=== PATIENT | female | born 1945 | race Caucasian/White ===

== ENCOUNTER 2023-09-06 08:10 | Observation (INO) ==
--- NOTE | 2023-08-14 12:30 | PAT Medication Instructions ---
Medication Instructions Date of Service August 14, 2023 Home Medications Vitamin D3 1 tab PO QAM amlodipine 10 mg tablet 10 mg PO QAM aspirin 81 mg capsule 81 mg PO QPM clopidogrel 75 mg tablet 75 mg PO QPM cyanocobalamin (vitamin B-12) 1 tab PO QAM gabapentin 300 mg capsule 300 mg PO BID levothyroxine 75 mcg tablet 75 mcg PO QAM lisinopril 20 mg tablet 20 mg PO BID multivitamin-ferrous fumarate-folic acid 18 mg-400 mcg tablet (Centrum Women) 1 tab PO QAM propranolol 20 mg tablet 40 mg PO BID tolterodine 1 mg tablet 1 mg PO BID ASK your prescriber and surgeon aspirin 81 mg capsule 81 mg PO QPM clopidogrel 75 mg tablet 75 mg PO QPM(in order for spinal or epidural anesthesia, Plavix needs to be stopped 7 days before surgery. Please check if okay with doctor that prescribes this to you) DO NOT take the morning of surgery Vitamin D3 1 tab PO QAM cyanocobalamin (vitamin B-12) 1 tab PO QAM lisinopril 20 mg tablet 20 mg PO BID multivitamin-ferrous fumarate-folic acid 18 mg-400 mcg tablet (Centrum Women) 1 tab PO QAM tolterodine 1 mg tablet 1 mg PO BID Take morning of surgery With a small sip of water, OTHERWISE NOTHING TO EAT OR DRINK AFTER MIDNIGHT: amlodipine 10 mg tablet 10 mg PO QAM gabapentin 300 mg capsule 300 mg PO BID levothyroxine 75 mcg tablet 75 mcg PO QAM propranolol 20 mg tablet 40 mg PO BID Take evening before surgery gabapentin 300 mg capsule 300 mg PO BID lisinopril 20 mg tablet 20 mg PO BID propranolol 20 mg tablet 40 mg PO BID tolterodine 1 mg tablet 1 mg PO BID Other Notes If you have any questions please call us at [phone] or [phone] or [phone] or [phone]
--- NOTE | 2023-08-21 10:24 | Anesthesiology Consultation ---
Date of Service August 21, 2023 Assessment & Plan (1) Encounter for pre-operative examination: - medical clearance 08/10/23: "...yes patient is medically cleared for surgery..." - Outpatient joint assessment: Patient is currently scheduled for inpatient pathway. If re-evaluated and patient/surgeon requests outpatient pathway, patient is not recommended candidate for outpatient joint program from anesthesia standpoint. Chart Review Chart Review: Acceptable Risk for Surgery and Patient seen in Pre Admission Testing Teaching & Discussion Pre-Anesthesia Teaching/Discussion Notes: Instructed NPO after midnight before surgery, except medications with 15 cc of water. Medication instructions provided according to the PAT guidelines. History Surgery Operation Date: 09/06/23 10:25 Proposed Procedures p Right Total Hip Arthroplasty - Mihir Boo MD Height/Weight Height: 5 ft 2 in Weight: 73 kg Allergies Allergy/AdvReac Type Severity Reaction Status Date / Time Influenza Virus Vaccines Allergy "Deathly Verified 08/16/23 08:39 sick and hospitalized" shellfish derived Allergy N/V, Verified 08/16/23 08:39 diarrhea [id number] Reductase AdvReac muscle Verified 08/14/23 08:22 Inhibitor aches Medications Home Medications Medication Instructions Recorded Confirmed Last Taken Vitamin D3 1 tab PO QAM 08/14/23 08/14/23 Unknown amlodipine 10 mg tablet 10 mg PO QAM 08/14/23 08/14/23 Unknown aspirin 81 mg capsule 81 mg PO QPM 08/14/23 08/14/23 Unknown clopidogrel 75 mg tablet 75 mg PO QPM 08/14/23 08/14/23 Unknown cyanocobalamin (vitamin B-12) 1 tab PO QAM 08/14/23 08/14/23 Unknown gabapentin 300 mg capsule 300 mg PO BID 08/14/23 08/14/23 Unknown levothyroxine 75 mcg tablet 75 mcg PO QAM 08/14/23 08/14/23 Unknown lisinopril 20 mg tablet 20 mg PO BID 08/14/23 08/14/23 Unknown multivitamin-ferrous 1 tab PO QAM 08/14/23 08/14/23 Unknown fumarate-folic acid 18 mg-400 mcg tablet (Centrum Women) propranolol 20 mg tablet 40 mg PO BID 08/14/23 08/14/23 Unknown tolterodine 1 mg tablet 1 mg PO BID 08/14/23 08/14/23 Unknown Past Medical History Medical History (Updated 08/21/23 @ 10:39 by Beatrice Kennedy PA-C) Diabetes mellitus diet controlled History of anemia Hx transfusion during hysterectomy, 1976 History of COVID-19 2020: hospitalized overnight, symptoms resolved Hx of transient ischemic attack (TIA) ~, left sided weakness, currently on Plavix; denies additional episodes Hypertension controlled, stable per pt Hypothyroidism Presence of pessary Seasonal allergies Chronic congestion + rhinorrhea (clear) Tremor Hands, chin Reason for propranolol Urinary incontinence + Pessary Patient denies h/o seizures, heart attack, heart failure, DM, or blood clots/DVTs. Exercise / Class Metabolic Activity III < 4 Walking/Shop/Light housework (denies chest discomfort or shortness of breath with usual activities) Past Surgical History Surgical History Hx of appendectomy Hx of bilateral cataract extraction Hx of colonoscopy Hx of hysterectomy Hx of tonsillectomy Past Anesthesia History No Hx of Anesthesia Complications and No Family Hx of Anesthesia Complications History of PONV No Hx of PONV and Hx of Motion Sickness Social History Smoking Status: Never smoker Do You Dip or Chew Tobacco: No Hx Alcohol Use: No Hx Substance Use: No substance use type: does not use Review of Systems Occasional snoring, denies witnessed apneas. Patient denies chest pain, shortness of breath, dyspnea on exertion, reflux, fever, chills, cough, wheezing, or palpitations. Physical Exam Vital Signs Vitals BP 114/69 P 66 TEMP 97.6 SP02 95% on RA RESP 18 Physical Patient resting comfortably in chair in no acute distress, alert and oriented, responding appropriately throughout visit Full cervical extension range of motion without pain TMD 3.5 finger breadths Mallampati Score 3 Dentition: right side upper removable partial; denies chipped or loose teeth, caps/crowns, implants or bridges Lungs: normal respiratory effort. Good air movement, clear throughout to auscultation, no adventitious breath sounds Cardiac: regular rate and rhythm, no murmurs noted Carotid arteries: negative bruit bilat Lab Results Anesthesia Preop Results Results Anesthesia Widget: PT 10.4 Seconds (9.0-12.0) 08/21/23 PTT 30 Seconds (21-31) 08/21/23 INR 0.9 (0.9-1.1) 08/21/23 Blood Type O Positive 08/21/23 Antibody Screen NEGATIVE 08/21/23 Testing Laboratory Results 08/13/23 WBC: 7.5 H/H: 15/46 PLATELETS: 239,000 SODIUM: 141 POTASSIUM: 4.2 CHLORIDE: 105 CO2: 31 BUN: 18 CREATININE: 0.8 GLUCOSE: 100 UA: cloudy, negative Electrocardiogram Date: 08/21/23 NSR, rate 67 bpm Left anterior fascicular block Moderate voltage criteria for LVH, may be normal variant Chest X-Ray Date: 08/21/23 No active disease in the chest.
[~2023-09-06 08:10] MED LIST: BUPIVACAINE 0.5 % 5 MG/1 ML PF 10ML VIAL ONE
[2023-09-06] MEDS ORDERED: fentaNYL citrate PF 100 MCG/2 ML VIAL ONE (08:54)
[2023-09-06] MEDS: LR 60ML/HR IV SCH (09:09)
[2023-09-06] MEDS: LR 500ML BOLUS, THEN 15ML/HR IV SCH (09:17)
--- NOTE | 2023-09-06 09:54 | History & Physical Bridge Note ---
Date of Service September 06, 2023 History & Physical Bridge Note I have examined the patient, reviewed the History & Physical and in the interval since the performance of the History & Physical I have noted the following changes of clinical significance: no changes noted
[2023-09-06] MEDS: TRANEXAMIC ACID 1,000 MG **IV Pre-op IV SCH (10:00)
[2023-09-06] MEDS: ceFAZolin 2000MG 2,000 MG/15 ML SYR IV SCH ×2 (10:25→18:31)
[2023-09-06] MEDS ORDERED: PROPOFOL IV EMULSION 10 MG/ML 20 ML VIAL IV ONE ×3 (10:52→11:14)
[2023-09-06] MEDS ORDERED: ONDANSETRON INJ 2 MG/ML 2 ML VIAL ONE (10:52)
[2023-09-06] MEDS ORDERED: PHENYLEPHRINE 100MCG/ML 10ML SYR IV ONE (11:00)
[2023-09-06] MEDS: ORTHO JOINT ANESTHETIC ONE (11:08)
[2023-09-06] MEDS: ROPIV 0.5% 246mg, Ketorolac 30mg, EPINEPHrine 0.5mg in NSS INFIL SCH (11:38)
[2023-09-06] MEDS: TRANEXAMIC ACID 1,000 MG **IV Intra-op IV SCH (11:41)
[2023-09-06] MEDS ORDERED: oxyCODONE HCL IR 5 MG TAB (IMMEDIATE RELEASE) PO PRN (12:23)
[2023-09-06] MEDS ORDERED: bisacodyL 10 MG SUPP PR PRN (12:23)
[2023-09-06] MEDS ORDERED: MAGNESIUM HYDROXIDE SUSP 30 ML UDC PO PRN (12:23)
[2023-09-06] MEDS ORDERED: NALOXONE HCL 0.4 MG/1 ML VIAL/CARP IV PRN (12:23)
[2023-09-06] MEDS ORDERED: METOCLOPRAMIDE HCL INJ 5 MG/ML 2 ML VIAL IV PRN (12:23)
[2023-09-06] MEDS ORDERED: ALUMINUM/MAGNESIUM SUSP 30 ML UDC PO PRN (12:23)
[2023-09-06] MEDS ORDERED: ONDANSETRON INJ 2 MG/ML 2 ML VIAL IV PRN (12:23)
[2023-09-06] MEDS ORDERED: diphenhydrAMINE 50 MG/ML VIAL IV PRN (12:23)
[2023-09-06] MEDS ORDERED: HYDROmorphone INJ 0.5 MG/0.5 ML SYR IV PRN (12:23)
--- NOTE | 2023-09-06 12:23 | Operative Report ---
Post Operative Report Pre & Post Diagnosis Operation Date: 09/06/23 10:05 Pre-Op Diagnosis: Right Hip Osteoarthritis Post-Op Diagnosis: Right Hip Osteoarthritis I identified the patient and participated in the time-out.: Yes Procedure Operation Date: 09/06/23 10:05 Actual Procedures p Right Total Hip Arthroplasty(Right) - Mihir Boo MD Surgeon Mihir Boo MD Manager Business Information Sharmaine Palmer PA-Didi Estimated Blood Loss 100 Findings Consistent with Post-Op Diagnosis Specimens femoral head Description of Procedure I was present during the entire case assisting with positioning, prepping, draping, wound retraction, wound closure, dressing and abduction pillow placement. No fellow present. Please see Dr. Boo procedure note for specifics of the case. I attest to the content of the Intraoperative Record and any orders documented therein. Any exceptions are noted below.
--- NOTE | 2023-09-06 12:25 | Operative Report ---
Post Operative Report Pre & Post Diagnosis Operation Date: 09/06/23 10:05 Pre-Op Diagnosis: Right Hip Osteoarthritis Post-Op Diagnosis: Right Hip Osteoarthritis I identified the patient and participated in the time-out.: Yes Procedure Operation Date: 09/06/23 10:05 Actual Procedures p Right Total Hip Arthroplasty(Right) - Mihir Boo MD Surgeon Mihir Boo MD Book Solicitor BENIJE Palmer PA-C. No resident or fellow was available to assist. Estimated Blood Loss 100 Findings Consistent with Post-Op Diagnosis Specimens Right femoral head Anesthesia Type Spinal MAC Complications none Disposition Disposition: Recovery Room Indications 78-year-old female, with right hip osteoarthritis refractory to conservative management. X-rays demonstrate coxa valga deformity of the proximal femur. Also [id number] arthritis with subchondral sclerosis. I had a long discussion with the patient about the diagnosis and treatment options. After reviewing all the risks and benefits of surgery, alternatives to surgery, and expected out comes she elected to proceed. All questions were answered. Informed consent was signed. Description of Procedure Patient was identified in the preoperative holding area where the surgical site, right hip, was marked. A spinal anesthetic was placed, then the patient was brought back to the main operating room, placed in the operating table and moved into the lateral decubitus position. Axillary roll was placed. All bony prominences were padded. Perioperative antibiotics and tranexamic acid 1 gram IV were administered. The operative extremity was prepped and draped in the normal sterile fashion. Prior to incision a multidisciplinary timeout was called. All in the room were in agreement. We began by making an incision for a posterior approach to the hip. We dissected down through subcutaneous tissues to the level of the fascia. Charnley retractor was required to retract the subcutaneous tissues which were quite thick approximately 3.5 inches. The fascia was incised in line with the incision. Charnley bow was then repositioned to retract the fascia. Fatty tissue was reflected posteriorly off the back of the greater trochanter to expose the piriformis and short external rotators of the hip. Quadratus femoris was taken off the femur subperiosteally. The piriformis and short external rotators were dissected off the posterior aspect of the hip. A box cut was made in the capsule. Inferior hip capsule was released off the femur. The femoral head was dislocated. The femoral neck cut was made at our preoperative template. The acetabulum was then exposed. The labrum was sharply excised. Contents of the cotyloid fossa were removed with electrocautery. We then began reaming at a size 8 mm less than our preoper ative template. We reamed up by [address] the way up to a size 54 mm cup. This gave us good bleeding cancellus bone circumferentially. The acetabulum was then irrigated out and dried. The real [place] Gription cup was then impacted down into position with 45 degrees of lateral opening and 25 degrees of anteversion. Two cancellous bone screws were placed up into the ilium. Excellent fixation was obtained. Given her increased risk for postoperative instability secondary to her age and female gender I elected to place a dual mobility liner for increased stability. [place] hole luggage maker screw was placed in the central hole of the cup. The metal liner for 47 mm outer diameter head was then impacted into the metal shell, engaging the Ircardo taper appropriately. Next we turned our attention to the femur. The lateral neck was removed with a box osteotome. Intramedullary guide was used to establish the intramedullary canal. We then broached all the way up to a size 3. We began trialing with a standard offset neck and a +1.5 head. Hip was reduced. Leg lengths were symmetric. The hip was stable in extension and external rotation, and stable in the sleeper position. At 90 degrees of hip flexion the hip could not be dislocated with internal rotation past 75 degrees. A bone hook was required to dislocate the femoral head out of the acetabulum. I was very happy with the stability exam. Therefore the hip was dislocated and the femoral trial was removed. The femoral canal was irrigated and dried. The real size 3 standard offset Actis femoral stem was opened up. This was impacted down into position. The dual mobility femoral head with 1.5 mm offset inner ceramic head and outer polyethylene had was opened up, assembled on the back table, and gently impacted down onto the trunnion. The hip was atraumatically reduced. Another 1 gram of IV tranexamic acid was started prior to closure. The wound was irrigated out with sterile Betadine solution. The periarticular injection cocktail was then placed. The short external rotators, piriformis, and posterior capsule were repaired through drill holes in the greater trochanter using #2 Vicryl. The fascia was run with a looped #1 PDS. The subcutaneous layer was closed with #1 PDS. The dermal layer was closed with 2-0 Vicryl. Zip line was used for the skin followed by a Silverlon dressing. A compressive dressing was then placed. The patient was then rolled supine. Leg lengths were rechecked and were symmetric. An abduction pillow was placed. Sedation was lifted and the patient was transferred to the recovery room in stable condition. Summary of implants: Depuy [place] Gription Acetabular Shell Sector Cup, 54 mm outer diameter Two [place] Cancellous bone screws measuring 6.5 x 40 mm and 6.5 x 20 mm [place] hole eliminator [place] dual mobility liner 54/47 DePuy Actis collared cementless Femoral stem, 12/14 taper, size 3 standard offset 47/28 bipolar Ultrex polyethylene outer head and 28 mm diameter ceramic inner femoral head with +1.5 offset Postoperative course: Patient will be admitted overnight from the recovery room. Patient will be weightbearing as tolerated with posterior hip precautions. Aspirin for DVT prophylaxis I attest to the content of the Intraoperative Record and any orders documented therein. Any exceptions are noted below.
--- NOTE | 2023-09-06 12:56 | XRay Report ---
AP PELVIS History: Right total hip arthroplasty. Degenerative arthritis. Postop. FINDINGS: The patient is status post a right total hip arthroplasty. The hardware is intact. No fract ure or dislocation. IMPRESSION: Right total hip arthroplasty. No evidence for hardware complication ACT 112: Negative or not required by law. Electronically signed by: Anders Sy M.D. 09/06/2023 12:55 PM
[2023-09-06] MEDS: SODIUM CHLORIDE 0.9% 1,000 ML IV SCH (13:41)
--- NOTE | 2023-09-06 14:44 | Anesthesiology Progress Note ---
Date of Service September 06, 2023 Anesthesia Post Procedure Vital Signs Vital Signs: Temp Pulse Pulse Resp BP Pulse Ox O2 Del Method 09/06/23 14:30 36.4 C L 66 16 119/73 94 Room Air 09/06/23 14:06 36.4 C L 70 16 127/73 91 Room Air 09/06/23 13:05 66 15 117/67 94 Room Air 09/06/23 12:50 36.4 C L 63 14 128/62 92 Room Air 09/06/23 12:40 66 15 122/65 95 Room Air 09/06/23 12:30 66 16 101/79 97 Room Air 09/06/23 12:24 36.2 C L 68 14 120/77 100 Oxymask 09/06/23 08:50 36.6 C 74 20 145/78 H 95 Room Air O2 Flow Rate 09/06/23 14:30 09/06/23 14:06 09/06/23 13:05 09/06/23 12:50 09/06/23 12:40 09/06/23 12:30 09/06/23 12:24 6 09/06/23 08:50 Pain Intensity Right Hip: Pain Intensity: 5 Transfer of Care Handoff Completed per policy Notes Mental Status: alert / awake / arousable and participated in evaluation Nausea / Vomiting: adequately controlled Pain: adequately controlled Airway Patency, RR, SpO2: stable & adequate BP & HR: stable & adequate Hydration State: stable & adequate Neuraxial Anesthesia: was administered and sensory block is resolving Anesthetic Complications: no major complications apparent and Pt Satisfied with anesthetic care
[2023-09-06] MEDS: KETOROLAC TROMETHAMINE 15 MG/ML VIAL IV SCH (14:58)
[2023-09-06] MEDS: ACETAMINOPHEN 500 MG TAB PO SCH (14:58)
[2023-09-06] MEDS: GABAPENTIN 300 MG CAP PO SCH (20:10)
[2023-09-06] MEDS: lisinopril 20 MG TAB PO SCH (20:10)
[2023-09-06] MEDS: SENNA 8.6 MG TAB PO SCH (20:11)
[2023-09-06] MEDS: DOCUSATE SODIUM 100 MG CAP PO SCH (20:11)
[2023-09-06] MEDS: PROPRANOLOL HCL 20 MG TAB PO SCH (22:07)
[2023-09-07 06:21] LABS: Basophils # (auto) 0.03 K/uL (0.00-0.20); Basophils % (auto) 0.4 %; Eosinophils # (auto) 0.14 K/uL (0.00-0.50); Eosinophils % (auto) 1.9 %; Hematocrit (blood only) 36.4 % (37.0-47.0); Hemoglobin 11.8 g/dl (12.0-16.0); Immature Granulocytes # (auto) 0.02 K/uL (0.01-0.20); Immature Granulocytes % (auto) 0.3 %; Lymphocytes # (auto) 1.36 K/uL (1.20-3.40); Lymphocytes % (auto) 18.4 %; Mean Corpuscular Hemoglobin 28.8 pg (25.0-34.0); Mean Corpuscular Hgb Conc 32.4 g/dL (32.0-36.0); Mean Corpuscular Volume 88.8 fL (80.0-100.0); Mean Platelet Volume 10.1 fL (9.4-12.4); Monocytes # (auto) 0.66 K/uL (0.11-0.59); Monocytes % (auto) 8.9 %; Neutrophils # (auto) 5.18 K/uL (1.40-6.50); Neutrophils % (auto) 70.1 %; Platelet Count 185 K/uL (130-400); RDW Coefficient of Variation 14.2 % (11.5-14.5); RDW Standard Deviation 45.6 fL (36.4-46.3); White Blood Count 7.39 K/ul (4.8-10.8)
[2023-09-07 06:40] LABS: BUN Creatinine Ratio 19.7 (10-20); Calcium 8.3 mg/dl (8.6-10.3); Creatinine Clr Calc Pharmacy 56.8 ml/min; Est GFR (African American) 87.1 ml/min; Est GFR (Non-African American) 75.1 ml/min; Potassium 3.8 mmol/L (3.5-5.1)
[2023-09-07] MEDS: CHOLECALCIFEROL 25 MCG (1000 UNITS) TAB PO SCH (08:02)
[2023-09-07] MEDS: dexAMETHasone 4 MG TAB PO SCH (08:02)
[2023-09-07] MEDS: OXYBUTYNIN CHLORIDE XL 5 MG TABCR PO SCH (08:02)
[2023-09-07] MEDS: amLODIPine BESYLATE 5 MG TAB PO SCH (08:02)
[2023-09-07] MEDS: MULTIVITAMIN TAB PO SCH (08:02)
[2023-09-07] MEDS: LEVOTHYROXINE SODIUM 75 MCG TABLET PO SCH (08:03)
[2023-09-07] MEDS ORDERED: NON-FORMULARY MEDICATION (Multivitamin-Iron-Folic Acid [Centrum Women] 18-400 mg-mcg Table PO SCH (09:00)
--- NOTE | 2023-09-07 09:23 | Orthopedic Progress Note ---
Date of Service September 07, 2023 Assessment & Plan (1) S/P total hip arthroplasty: Plan: Total hip precautions reviewed PT/OT Keep Silverlon dressing in place until follow-up Ice with easy wrap Pain controlled p.o. medication DVT prophylaxis with ELOISA stockings, Plavix and aspirin Abduction pillow use x 6 weeks Weightbearing as tolerated with walker assistance Plan is to discharge home later this morning with in-home physical therapy for the first 2 weeks Follow-up at [facility] orthopedics as previously scheduled With questions contact our clinic at [phone] Admission and Anticipated Discharge Date Admission Date: September 06, 2023 Subjective This 78-year-old female is day 1 status post right total hip arthroplasty. She is doing very well this morning. She states that she really has no pain. She hopes to be discharged home later this morning after she completes PT and OT. She states that she has people staying with her for the next few weeks. She states that she is also set up with in-home physical therapy with [facility] before transitioning to PT at [facility] in [place]. Currently she denies chest pain, shortness of breath, fever, chills, sweats or numbness or tingling in her right lower extremity. She also denies nausea, vomiting, diarrhea or difficulty voiding. Review of Systems Review of Systems: All systems reviewed & are unremarkable except as noted in Subjective Physical Exam Physical Exam: Right hip: Outer dressing was removed. Silverlon is clean dry and intact and left in place. Patient is able to perform active straight leg raise test. She is able to actively dorsi and plantarflex her foot without issue. She tolerates light passive hip flexion near 90 degrees and has no pain with light passive internal or external rotation. She is able to detect light sensation to touch over her lower leg and the pads of her digits. She is neurovascularly intact in the right lower extremity and her quad strength is 4 out of 5. Results & Data Vital Signs (Past 12 Hours) Vital Signs Temp Pulse Pulse Resp BP Pulse Ox O2 Del Method 09/07/23 07:45 36.7 C 72 18 118/72 93 Room Air 09/07/23 02:26 36.6 C 73 74 16 124/74 95 Room Air 09/06/23 23:59 36.9 C 73 18 115/64 93 Room Air Laboratory Results Laboratory Results WBC 7.39 K/ul (4.8-10.8) 09/07/23 05:40 RBC 4.10 M/uL (4.20-5.40) L 09/07/23 05:40 Hgb 11.8 g/dl (12.0-16.0) L 09/07/23 05:40 Hct 36.4 % (37.0-47.0) L 09/07/23 05:40 MCV 88.8 fL (80.0-100.0) 09/07/23 05:40 MCH 28.8 pg (25.0-34.0) 09/07/23 05:40 MCHC 32.4 g/dL (32.0-36.0) 09/07/23 05:40 RDW Std Deviation 45.6 fL (36.4-46.3) 09/07/23 05:40 RDW Coeff of [place] 14.2 % (11.5-14.5) 09/07/23 05:40 Plt Count 185 K/uL (130-400) 09/07/23 05:40 MPV 10.1 fL (9.4-12.4) 09/07/23 05:40 Immature Gran % (Auto) 0.3 % 09/07/23 05:40 Neut % (Auto) 70.1 % 09/07/23 05:40 Lymph % (Auto) 18.4 % 09/07/23 05:40 [place] % (Auto) 8.9 % 09/07/23 05:40 Eos % (Auto) 1.9 % 09/07/23 05:40 Baso % (Auto) 0.4 % 09/07/23 05:40 Neut # (Auto) 5.18 K/uL (1.40-6.50) 09/07/23 05:40 Lymph # (Auto) 1.36 K/uL (1.20-3.40) 09/07/23 05:40 [place] # (Auto) 0.66 K/uL (0.11-0.59) H 09/07/23 05:40 Eos # (Auto) 0.14 K/uL (0.00-0.50) 09/07/23 05:40 Baso # (Auto) 0.03 K/uL (0.00-0.20) 09/07/23 05:40 Immature Gran # (Auto) 0.02 K/uL (0.01-0.20) 09/07/23 05:40 Sodium 141 mmol/L (136-145) 09/07/23 05:40 Potassium 3.8 mmol/L (3.5-5.1) 09/07/23 05:40 Chloride 107 mmol/L (98-107) 09/07/23 05:40 Carbon Dioxide 30 mmol/L (21-32) 09/07/23 05:40 Anion Gap 4 (3-11) 09/07/23 05:40 BUN 15 mg/dl (6-23) 09/07/23 05:40 Creatinine 0.76 mg/dl (0.6-1.2) 09/07/23 05:40 Est Cr Clr Drug Dosing 56.8 ml/min 09/07/23 05:40 Est GFR ( Amer) 87.1 ml/min 09/07/23 05:40 Est GFR (Non-Af Amer) 75.1 ml/min 09/07/23 05:40 BUN/Creatinine Ratio 19.7 (10-20) 09/07/23 05:40 Glucose 108 mg/dl (70-99(Fasting)) H 09/07/23 05:40 POC Glucose 108 mg/dl (70-99) H 09/06/23 12:27 Calcium 8.3 mg/dl (8.6-10.3) L 09/07/23 05:40 Impressions Pelvis X-Ray 09/06/23 12:23 AP PELVIS History: Right total hip arthroplasty. Degenerative arthritis. Postop. FINDINGS: The patient is status post a right total hip arthroplasty. The hardware is intact. No fracture or dislocation. IMPRESSION: Right total hip arthroplasty. No evidence for hardware complication ACT 112: Negative or not required by law. Electronically signed by: Anders Sy M.D. 09/06/2023 12:55 PM
--- NOTE | 2023-09-07 09:58 | Discharge Summary ---
Date of Service September 07, 2023 Admission HPI Per Admitting Provider History of Present Illness Nancie Ovalles is a 78 year old female who presents today for a preoperative history and physical. She is scheduled to have a right total hip arthroplasty by Dr. Boo on September 06, 2023. Her right hip is doing well however she has some low back pain that shoots down her leg past her knee. She has this pain frequently and is bother by it daily. The pain is brought on by walking little d istances. She takes Gabapentin, prescribed by Dr. Patino. She denies groin pain. Her pain is at the posterolateral hip and right sided low back. She has knee pain on both sides of the joint line. She has had an injection with Dr. Patino and is scheduled to have another one in September. She has had a hip injection with Dr. Starr which offered her relief. She has a lump near the SI joint of her right hip. She is taking propranolol for her tremor. She has a history of a ministroke and is taking 81 mg Aspirin and clopidogrel.She describes pain on a daily basis. She does not use a walker or cane to assist with ambulation but she does have both for use at home. She has had no new injury except history of a fall at a wedding a few years back. 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 She has stiffness in the right hip. It causes her to limp. She denies any numbness or tingling down her leg. Denies any significant weakness. She has pain while sitting as well as while ambulating. It does interfere with her daily activities. She has tried [id number] Tylenol but is unable to take anti- inflammatories due to her being on Plavix. Due to her failure of conservative treatment and progressively worsening symptoms surgical intervention was recommended. She does agree to proceed with surgery. Admission Exam Per Admitting Provider General: Well-dressed, well-nourished. Normal mood and affect. Alert and oriented x3. HEENT: Head: Atraumatic, normocephalic. Eyes: Extraocular movements intact, pupils equal round and reactive to light, sclera normal. Ears: Ears grossly normal, TMs are clear normal light reflex. Nose: Nares are patent bilaterally. Throat: Oropharynx clear mucous membranes moist good dentition uvula midline. Partial implant noted. Neck: Supple, no lymphadenopathy, nontender palpation, full range of motion. Cardiac: Regular rate and rhythm, normal S1, S2. No murmurs, rubs or gallops appreciated. Lungs: Clear to auscultation bilaterally. No adventitious sounds. No accessory muscle use. Abdomen: Soft, nontender, nondistended, normal bowel sounds heard in all 4 quadrants. Extremities: Focusing on the patient's right lower extremity: Sensation intact to light touch L3 to S1 dermatomes ROM: Flexion 65 / Abduction 20/ External rotation 35/ Internal rotation 0 + Log roll + KIRILL test, knee is 12 inches off table, vs 8 inches on other knee + Stinchfield test - Straight leg raise test Principal Diagnosis Right hip osteoarthritis Discharge Exam Right hip: Outer dressing was removed. Silverlon is clean dry and intact and left in place. Patient is able to perform active straight leg raise test. She is able to actively dorsi and plantarflex her foot without issue. She tolerates light passive hip flexion near 90 degrees and has no pain with light passive internal or external rotation. She is able to detect light sensation to touch over her lower leg and the pads of her digits. She is neurovascularly intact in the right lower extremity and her quad strength is 4 out of 5. Discharge Data Allergies Allergy/AdvReac Type Severity Reaction Status Date / Time Influenza Virus Vaccines Allergy Severe "Deathly Verified 09/06/23 08:39 sick and hospitalized" shellfish derived Allergy Intermediate N/V, Verified 09/06/23 08:39 diarrhea [id number] Reductase AdvReac Intermediate muscle Verified 09/06/23 08:39 Inhibitor aches Procedures Performed Operation Date: 09/06/23 10:05 Actual Procedures p Right Total Hip Arthroplasty(Right) - Mihir Boo MD Hospital Course (1) S/P total hip arthroplasty: Patient had an uneventful overnight stay following her right total hip arthroplasty. She is very pleased with the results. She is essentially pain- free. She hopes to be discharged home later this morning after completing in- house physical therapy and Occupational Therapy. She states she is already set up with [facility] home health and PT to begin this weekend. Total hip precautions reviewed PT/OT Keep Silverlon dressing in place until follow-up Ice with easy wrap Pain controlled p.o. medication DVT prophylaxis with ELOISA stockings, Plavix and aspirin Abduction pillow use x 6 weeks Weightbearing as tolerated with walker assistance Plan is to discharge home later this morning with in-home physical therapy for the first 2 weeks Follow-up at [facility] orthopedics as previously scheduled With questions contact our clinic at [phone] Total Time Total Time Spent Total Time Spent (In Minutes): 25 mins Discharge Plan Discharge Items Patient Disposition: Home - Home Health Services Reason For Visit: Right Hip Osteoarthritis Discharge Diagnosis: Right Hip Osteoarthritis Activity: As commented below Lifting: None Bathing: Keep incision dry Bathing Comment: May shower tomorrow Sexual Activity: Wait until after follow-up appointment Exercise/Sports: Wait until after follow-up appointment Driving/Machine Use: No driving until cleared by on site services specialist Weightbearing: Right weightbearing Weightbearing Comment: as tolerated with walker assistance Non-emergency contact: Surgeon Call non-emergency contact if: you have any medication questions, your pain is not controlled, your temperature is above 101.5, your wound has increased drainage and your wound pain has increased Follow-up/Referrals: PCP,NO [Physician] - Diet: Regular Addtl Attending Provider Instructions: Post-operative Instructions Dear Patient and Family/Friends, Before you are discharged from the hospital, it is important to know what to expect when you get home after surgery. To that end, we have created this sheet of discharge instructions which covers many commonly asked questions. Make sure you go through this sheet in its entirety with your nurse before you are discharged. Please note that we will go over the specifics of your surgery and recovery when you return for your first post-operative visit. Sincerely, Dr. Boo Medications 1. Oxycodone 5 mg: Take 1 to 2 tablets every 4-6 hours as needed for postoperative pain control. A prescription for this medication will be sent to your pharmacy. 2. Diclofenac sodium 75 mg: Take 1 tab twice daily for the first 30 days postoperatively for pain and inflammation relief. A prescription for this medication will be sent to your pharmacy with 1 additional refill. 3. Resume your daily Plavix and aspirin regimen for blood clot prevention 4. Extra strength Tylenol 500 mg: Take 2 tabs every 6-8 hours as needed for additional pain relief. Please purchase this medication. Pain Expect to be in a fair amount of pain after surgery. Remember, our goal is not to eliminate your pain, but to make it tolerable. It is a good idea to stay ahead of your pain by taking the medications you were prescribed once you get home. Typically, the pain starts improving 3-7 days after surgery. You should start weaning off the narcotic pain medication (oxycodone, hydrocodone, hydromorphone, morphine) as soon as your pain improves. Please call our office if your pain is not adequately controlled. Ice Ice your operative site at least 5 times a day for 15-30 minutes at a time. Make sure you have a thin cloth between the ice or cooling unit and your skin to prevent miles bite. This is especially important if you received a nerve block. Continue icing your operative site for the first 5-7 days after surgery, then as needed. Diet/Nausea/Vomiting Start by drinking clear liquids and eating crackers. If you can tolerate this, then you may resume your normal diet. If you feel nauseated or vomit, take Zofran/ondansetron (if prescribed). Please call our office if you have intractable nausea or vomiting, or, if after hours, you may go to the Emergency Room for help. Constipation Constipation is a common side effect of narcotic pain medication. If you have not had a bowel movement within 2 days after surgery, we recommend purchasing an over the counter laxative such as Milk of Magnesia, Dulcolax, or Miralax from a local pharmacy, and taking it as instructed. Call our clinic if any questions. Nerve block The anesthesia team sometimes places a nerve block to help with post-operative pain control. This results in significant numbness and inability to move the extremity. The nerve block usually wears off in 8-12 hours, but sometimes can last up to 24 hours. Please call our office if you are still unable to move your extremity after 24 hours, unless you received a pain pump to take home. Nerve blocks typically wear off quickly, so start taking pain medication as soon as you start feeling soreness near your surgical site. Weight bearing and Range of Motion. Do not bear any weight through your operative extremity immediately after surgery. If you had upper extremity surgery, do not lift anything with that arm. If you are in a knee brace, keep it locked in place until your follow-up. We will discuss your weight bearing, range of motion, and lifting restrictions in detail at your first post-operative appointment. Continuous Passive Motion (CPM) Machine If you were prescribed a CPM machine, it will start after your first post- operative appointment, at which time we will give you instructions on the range of motion settings and duration of treatment Physical therapy You will be given a prescription for physical therapy or occupational therapy at your first post-operative appointment. Typically, patients start therapy within 1 week of surgery Wound care and showering We will inspect your wound at your first post-operative visit, and may do a dressing change at that time. Most patients will be in a water-proof dressing that is removed 14 days after surgery. It is normal to see some dried blood on the dressing. Do not remove your dressing, paper strips or sutures yourself u nless you are given permission. Showering is allowed the day after surgery. Do not scrub or remove any dressings. The wound should not be submerged underwater (i.e. in a bathtub or pool) until 4 weeks after surgery ELOISA stockings If you were given white stockings, these are to be worn at all times except to shower (on both legs) for the first 2 weeks after surgery. Driving You may not drive while taking narcotic pain medication or while in a cast, splint, sling or brace. You, the patient, need to make the final determination about when you are safe to drive, however, the earliest you may consider driving after surgery is below: Hand/Wrist/Elbow Surgery: 3 days Shoulder Surgery: 2 weeks Hip,/Knee/Ankle Surgery: 4 weeks Fracture repair: 6 weeks Return to Work Your return to work depends on what surgery was done and what type of work you do. Please bring any paperwork your employer needs completed to your first post-operative visit. Also, bring a description of your job duties, as this helps us to understand what risks you may face at work. Travel Avoid long distance travel (greater than 1 hour) in airplanes and cars for the first 6 weeks after surgery. If you must travel, you need to have a Doppler ultrasound done before you travel to rule out a blood clot in your legs. Follow-up You should have a follow-up appointment already scheduled 1-2 days after surgery. If not, please contact our office to make this appointment before you leave the hospital. When to call the office It is normal to have swelling and bruising in the limb that was operated on. This will improve with time. It is also normal to have fevers for the first 2 days after surgery. Reasons you should call your doctor include: Uncontrolled pain; Nausea, vomiting, or constipation that does not improve with medication; Fevers over 101.5, chills, sweats; Drainage or bleeding from the wound; Foul odor; Spreading areas of redness; Any other concerns Pending Studies at Discharge: No Stand-Alone Forms: My [facility], Pain - Opioid Pain Management Medications and DC Order Prescriptions: New acetaminophen [Tylenol Extra Strength] 500 mg Tablet 1,000 mg PO Q8 30 Days Qty: 180 0RF oxycodone 5 mg Tablet 5 - 10 mg PO Q4H MDD 6 tablets PRN (Reason: Postoperative pain control) Qty: 28 0RF diclofenac sodium 75 mg tablet,delayed release (DR/EC) 75 mg PO BID 30 Days Qty: 60 1RF Continued tolterodine [Detrol] 1 mg Tablet 1 mg PO BID lisinopril 20 mg Tablet 20 mg PO BID clopidogrel 75 mg Tablet 75 mg PO QPM Patient Comments: afternoon levothyroxine 75 mcg Tablet 75 mcg PO QAM amlodipine [Norvasc] 10 mg Tablet 10 mg PO QAM gabapentin 300 mg Capsule 300 mg PO BID propranolol 20 mg Tablet 40 mg PO BID cyanocobalamin (vitamin B-12) Tablet,Chewable 1 tab PO QAM Centrum Women 18-400 mg-mcg Tablet 1 tab PO QAM aspirin 81 mg Capsule 81 mg PO QPM Vitamin D3 1 tab PO QAM Admission Data Admit Date/Time: 09/06/23 12:23 Attending Provider: Mihir Boo Admit Provider: Mihir Boo Primary Care Provider: Carlos Mott Other Providers: [facility],Referral Center; [facility]
[2023-09-07] MEDS: CYANOCOBALAMIN (B-12) 500 MCG TABLET PO SCH (10:06)
[2023-09-07] MEDS ORDERED: CLOPIDOGREL BISULFATE 75 MG TAB PO SCH (21:00)
[2023-09-07] MEDS ORDERED: CeleBREX 200 MG CAP PO SCH (21:00)
[2023-09-07] MEDS ORDERED: ASPIRIN 81 MG ECTAB PO SCH (21:00)
--- OUTSIDE RECORDS SUMMARY | 2023-09-08 09:20 | External Medical Summary | Continuity of Care Document ---
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 Name Role Phone Carlos Mott Primary Care Physician [phone] [facility] [id number] Date(s): 08/21/23 - 08/21/23 [facility] [address] [id number] [facility] [address] [place] [id number] Encounter Diagnosis Osteoarthritis of hip(Discharge Diagnosis) - 08/21/23 Discharge Disposition: Home or Self Care Attending Physician: DAVID Pacheco, Rekha France Referring Physician: MD Rajeev, Mihir Ozuna Allergies, Adverse Reactions, Alerts Substance Reaction Severity Status shellfish unknown Moderate Active flu vaccines Emesis Moderate Active statins Muscle pain Mild Active Medications gabapentin 300 mg oral capsule Start: 04/02/23 9:50:00 EST, 1 cap, PO, tid, Disp# 90 cap, Refills: 5, Pharmacy: [facility] Start Date: 04/02/23 Status: Ordered lisinopril Start: 10/24/22 8:23:00 EDT Start Date: 10/24/22 Status: Ordered Norvasc Start: 10/24/22 8:23:00 EDT Start Date: 10/24/22 Status: Ordered Plavix Start: 10/24/22 8:23:00 EDT Start Date: 10/24/22 Status: Ordered propranolol 20 mg oral tablet Start: 03/27/23 8:23:00 EST, 1 tab, PO, bid Start Date: 03/27/23 Status: Ordered Synthroid Start: 10/24/22 8:22:00 EDT Start Date: 10/24/22 Status: Ordered tolterodine 1 mg oral tablet Start: 01/29/23 13:43:00 EDT Start Date: 01/29/23 Status: Ordered Mental Status 08/21/23 Barriers to Learning one year None evide nt Mandatory Health Literacy Documentation Yes Health Literacy Communication Barriers N ever Primary Language Persian Problem List Condition Confirmation Course Effective Dates Status H ealth Status Informant Diabetes Confirmed Active Thyroid disease Confirmed Active Trochanteric bursitis, right hip Confirmed Active Right hip pain Confirmed Active History of stroke Confirmed Active HTN (hypertension) Confirmed Active Lumbar disc disease with radiculopathy Confirmed Active Right lumbar radiculopathy Confirmed Active Diagnosis Diagnosis Type Effective Dates Health Status Clinical Service Informant Osteoarthritis of hip Discharge Diagnosis 08/21/23 Non-Specified Procedures Procedure Date Related Diagnosis Body Site Status APPENDECTOMY Completed H/O: hysterectomy Complet ed Tonsil Completed Vital Signs Most recent to oldest [Reference Range]: 1 Height 158 cm (08/21/23 8:35 AM) Patient Weight 72.8 kg (08/21/23 8:35 AM) Body Mass Index 29.16 kg/m2 (08/21/23 8:35 AM) Temperature [36.5-37.9 DegC] 36.5 DegC (08/21/23 8:35 AM) Heart Rate 79 bpm (08/21/23 8:35 AM) Blood Pressure 116/64mmHg (08/21/23 8:35 AM) Cuff Pulse Pressure 52 mmHg (08/21/23 8:35 AM) Social History Social History Type Response Smoking Status Never smoked cigaret radha Sex Female Pre-OP H & P * DAVID Pacheco Jennifer R: PERFORM, MODIFY Event Display: Pre-OP H & P Authored Date: [id number] Name:BRISEIDA YO I Patient Number:[id number] :1945 Date of Service:08/21/2023 Chief Complaint pre op R) hip with [facility] 09/06/23 History of Present Illness [id number] arredondo presents today for a preoperative history and physical.She is scheduled to have a right total hip arthroplasty by Dr. Boo on September 06, 2023. Her right hip is doing well however she has some low back pain that shoots down her leg past her knee. She has this pain frequently and is bother by it daily. The pain is brought on by walking little distances. She takes Gabapentin, prescribed by Dr. Patino. She denies groin pain. Her pain is at the posterolateral hip and right sided low back. She has knee pain on both sides of the joint line. She has had an injection with Dr. Patino and is scheduled to have another one in September. She has had a hipinjection with Dr. Starr which offered her relief. She has a lump near the SI joint of her right hip. She is taking propranolol for her tremor. She has a history of a ministroke and is taking 81 mg Aspirin and clopidogrel.She describes pain on a daily basis. She does not use a walker or cane to assist with ambulation but she does have both for use at home. She has had no new injury except history of a fall at a wedding a few years back. 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 She has stiffness in the right hip. It causes her to limp. She denies any numbness or tingling down her leg. Denies any significant w eakness. She has pain while sitting as well as while ambulating. It does interfere with her daily activities. She has tried [id number] Tylenol but is unable to take anti-inflammatories due to her being on Plavix. Due to her failure of conservative treatment and progressively worseningsymptoms surgical intervention was recommended. She does agree to proceed with surgery. Review of Systems Denies any recent cough, cold, fevers, chills or flulike symptoms. She states that she has had some sinus congestion and frequent sneezing which she attributes to seasonal allergies. She does occasionally get lightheadedness or dizzy when changing positions quickly such as standing up or going from a lying to sitting position. It is quick to resolve. Has not attributed to any falls. Shedenies any syncopal episodes, headaches, migraines or seizures. Denies any bleeding or clotting disorders or history of DVT or pulmonary embolism. Denies any recent hospitalizations. Denies any history of metal sensitivity, latex allergy or MRSA. Denies any shortness of breath or chest pain. Denies abdominal pain, heartburn, indigestion, nausea, vomiting, diarrhea or constipation. Denies any urinary tract infections, she does have urinary incontinence and uses a Pessary. Denies any hearing or vision changes. Denies any dental problems. She does have anupper partial dental prosthesis. She has been on Plavix ever since her TIA in 2013. Physical Exam Vitals & Measurements T:36.5C HR:79(Monitored) BP:116/64 SpO2:96% HT:158cm WT:72.800kg(Dosing) WT:72.8kg BMI:29.16 Vitals:Last Updated 08/21/23 08:35 Date Temp BP Location Pulse RR SpO2 Pain 08/21/23 36.5 116/64 79 96 08/21/23 6 07/31/23 2 Height and Weight:Last Updated 08/21/23 08:35 Date BMI Wt(kg) Wt(lb) Method Ht(cm) (ft-in) Method 08/21/23 29.16 72.8 160 Standing Scale 158 5-2 07/31/23 29.16 72.8 160 Standing Scale 158.0 5-2 01/29/23 27.27 68 150 Standing Scale 157.9 5-2 General:Well-dressed, well-nourished. Normal mood and affect. Alert and oriented x3. HEENT:Head: Atraumatic, normocephalic. Eyes: Extraocular movements intact, pupils equal round and reactive to light, sclera normal. Ears: Ears grossly normal, TMs are clear normal light reflex.Nose: Nares are patent bilaterally. Throat: Oropharynx clear mucous membranes moist good dentition uvula midline. Partial implant noted. Neck:Supple, no lymphadenopathy, nontender palpation, full range of motion. Cardiac:Regular rate and rhythm, normal S1, S2. No murmurs, rubs or gallops appreciated. Lungs:Clear to auscultation bilaterally. No adventitious sounds. No accessory muscle use. Abdomen:Soft, nontender, nondistended, normal bowel sounds heard in all 4 quadrants. Extremities: Focusing on the patient'sright lower extremity: Sensation intact to light touch L3 to S1 dermatomes ROM: Flexion 65 / Abduction 20/ External rotation 35/ Internal rotation 0 + Log roll + KIRILL test, knee is 12 inches off table, vs 8 inches on other knee + Stinchfield test - Straight leg raise test Diagnostic Results I obtained and personally interpreted3 views of theright hip which shows severe arthritis in the right hip which is bone on bone. There is subchondral sclerosis and cysts noted on both sides of the joint. Sizing ball x-rays were obtained today and show severe end-stage osteoarthritis of her right hip joint. Assessment/Plan Osteoarthritis of hip Patient is scheduled for right total hip arthroplasty with Dr. Boo on September 06, 2023. Risk and complications of the procedure were explained to the patient and include but are not limited to infection, pain, bleeding, scarring, nerve or blood vessel damage, wound problems, weakness, stiffness, incomplete relief of symptoms, hardware failure, hardware loosening, wear, fracture, tendon or liga ment injury, dislocation, leg length discrepancy, blood clots, embolisms, heart attack, stroke and . All questions were answered and informed consent was obtained. She did have recent CBC, BMP and hemoglobin A1c with her family physician. We will have her get a PT, PTT, type and screen, EKG and chest x- ray, MRSA nasal swab while at preadmission testing later today. She does need preoperative medical clearance. She has obtained preoperative dental clearance. She is on Plavix andwe will need to know when is appropriate for her to stop that prior to surgery due to her previous history of stroke. Postoperative course was discussed. She was given a prescription for a cane. She does have a walker at home for use after surgery. She would like to go home with home healthand then attend outpatient physical therapy in [place]. She will follow-up at 2 weeks for postoperative suture removal. She was instructed on the usage of the CHG wipes preoperatively. She knows to be n.p.o. after midnight in the morning of her surgery. We will use 81 mg aspirin and resume her Plavix postoperatively for DVT prophylaxis. Pain medication will be prescribed upon discharge from the hospital. Patient understands and agrees with the plan. All questions were answeredtoday. They know to call with any further problems, questions or concerns. This chart was completed utilizing [employer] voice recognition software. Grammatical errors, random word insertions, pronoun errors, and in complete sentences are an occasional consequence of the system. Any questions or concerns about the content, text, or information contained within the body of this dictation should be addressed directly to the provider for clarification. Problem List/Past Medical History Ongoing History of stroke HTN (hypertension) Lumbar disc disease with radiculopathy Right lumbar radiculopathy Thyroid disease Trochanteric bursitis, right hip Diet controlled type II diabetes Osteoarthritis right hip Hypothyroidism High cholesterol Essential tremor Procedure/Surgical History APPENDECTOMYH/O: hysterectomyTonsil Medications Home amLODIPine(Norvasc) clopidogrel(Plavix) gabapentin(gabapentin 300 mg oral capsule), 1 cap, PO, tid levothyroxine(Synthroid) lisinopril propranolol(propranolol 20 mg oral tablet), 20 mg= 1 tab, PO, bid tolterodine(tolterodine 1 mg oral tablet) Allergies flu vaccines (Moderate)Emesis shellfish (Moderate)unknown statins (Mild)Muscle pain Social History Smoking Status Never smoked cigarettes Alcohol - Denies Alcohol Use Tobacco - Denies Tobacco Use Family History Cancer: Unknown. Diabetes type: Unknown. Electronic Signature on File Electronically Reviewed/Signed by: Rekha Pacheco PA-C Author Signature Dt/Tm:08/21/2023 01:11PM Division of Sports Medicine Electronically Reviewed/Signed by: Mihir Boo MD Cosigner Signature Dt/Tm: 08/21/2023 04:53PM Division of Sports Medicine [facility] Patient Care team information Care Team Personnel Name: DO Mott Daniel E Position: Referring Member Role: Primary Care Provider Address: Address: [address] [place] [id number]
== END 2023-09-07 11:19 | disposition home or self-care (01) ==
LOC: ASU 08:10 → 3E 08:10